=== PATIENT | female | born 1950 | race Caucasian/White ===

== ENCOUNTER 2021-12-29 06:52 | Outpatient (CLI) | payer MEDICARE, OTHER ==
[~2021-12-29] VITALS: Ht 157.5 cm; Wt 54.4 kg
[2021-12-29] MEDS ORDERED: MASON NATURAL2000 IU PO (08:00)
[2021-12-29] MEDS ORDERED: PLAVIX 75MG TAB75 MG PO (08:00)
[2021-12-29] MEDS ORDERED: FERRO-TIME325 MG PO (08:03)
[2021-12-29 08:19] VITALS: BP 124/58; PULSE 78; TEMP 98.1
[2021-12-29 09:14] LABS: HEMATOCRIT 42.9 % (37.0-47.0); HEMOGLOBIN 14.6 g/dl (12.5-16.0); MEAN CELL VOLUME 94 fl (80.0-100.0); MEAN CORPUSCULAR HEMOGLOBIN 32 pg (27-31); MEAN CORPUSCULAR HGB CONC 34 g/dl (33.0-37.0); RED BLOOD COUNT 4.55 M/mm3 (4.10-5.30); REDCELL DISTRIBUTION WIDTH-CV 12.9 % (11.5-14.5)
[2021-12-29 09:20] VITALS: BP 115/53; PULSE 76; TEMP 97.7
[2021-12-29 09:35] VITALS: BP 111/57; PULSE 76
[2021-12-29 09:50] VITALS: BP 102/44; PULSE 72
[2021-12-29 09:52] LABS: PLATELET COUNT 48 K/mm3 (130-400)
[2021-12-29 10:05] VITALS: BP 116/50; PULSE 76
[2021-12-29 10:08] LABS: BAND 4 % (0-10); EOSINOPHIL 4 % (0-4); LYMPHOCYTE 26 % (20.0-51.0); NEUTROPHILS 52 % (42.0-75.2); PLATELET ESTIMATE DECREASED (NORMAL)
--- NOTE | 2021-12-29 10:33 | NUR ---
Initial visit; Grounds Foreman offered prayer for Gaby and her Kevin prior to her surgical procedure. Grounds Foreman let Gaby know she will keep her in her prayers for healing.
[2021-12-29 10:35] VITALS: BP 110/54; PULSE 72
--- NOTE | 2021-12-29 11:00 | NUR ---
0920 RETURNS TO ROOM 7 PER CART. PATIENT AWAKE, ALERT. RESP CLEAR, UNLABORED. MONITORS ON, VITAL SIGNS OBTAINED. PATIENT DENIES PAIN. DRESSING TO LEFT LOWER BACK AREA CLEAN DRY AND INTACT. NO REDNESS OR EDEMA OBSERVED. IN ROOM. CALL LIGHT AT SIDE. 0950 HOB ELEVATED 70 DEGREES. TOLERATES PO SODA WITHOUT NAUSEA. REFUSES SNACK. 1012 LAB RESULTS CALLED TO LINO AT DR. PEREZ'S OFFICE. WILL REPORT TO AND CALL PATIENT IF NEEDED. 1030 DOZING AT INTERVALS, AROUSES EASILY. DENIES PAIN. DRESSING REMAINS CLEAN, DRY AND INTACT. 1040 DISCHARGE INSTRUCTIONS REVIEWED. PATIENT VERBALIZES UNDERSTANDING. COPY OF INSTRUCTIONS AND EDUCATIONAL MATERIAL PROVIDED IN DISCHARGE FOLDER.
== END 2021-12-29 11:00 | disposition home or self-care (01) ==
LOC: SDCO 06:52
PROVIDERS: Pathology Anatomic Pathology & Clinical Pathology
DX: D61.818 Other pancytopenia (principal); F17.210 Nicotine dependence, cigarettes, uncomplicated
CPT/HCPCS: J0690; J2405; J2704; J3010; J7120